=== PATIENT | female | born 2000 | race Caucasian/White ===

== ENCOUNTER 2023-09-27 13:47 | Emergency (ER) | payer OTHER, SELFPAY ==
[2023-09-27 13:51] VITALS: BP 122/76
--- NOTE | 2023-09-27 14:44 | ED.GENMED ---
History of Present Illness
General
Chief Complaint: Skin Problem
Time Seen by Provider: 09/27/23 14:27
History of Present Illness
History of Present Illness:
23-year-old female presents to the emergency department for evaluation of an actively draining abscess to the left inner breast. Father states she has had numerous issues with skin infections over the past several months. Has never had an abscess
drained in the past. No reported fevers or chills
Past History
Past History
ED Past Medical History: Other (hydradenitis suppurativa )
Review of Systems
Review of Systems
Allergies reviewed?: Yes
All Other Systems: ROS reviewed and negative except as documented in HPI and ROS
Phy Exam
Physical Exam
Physical Exam:
GEN: Well appearing, NAD, WDWN
HEENT: Oral mucosa moist, no scleral icterus
Cardiac: Regular rate
Lung: No respiratory distress, no tachypnea
MSK: No gross deformity or injuries
Skin: Good color, no pallor or jaundice, no rashes. 4 cm x 2 cm fluctuant abscess with active purulent discharge to the left inner breast tissue
Neuro: AO x3, moves all extremities freely
Psych: Calm, cooperative
Course
Vital Signs
Initial and Last Documented VS:
Initial Vital Signs
Temp Pulse Resp BP Pulse Ox
98.2 F 84 18 122/76 98
09/27/23 13:51 09/27/23 13:51 09/27/23 13:51 09/27/23 13:51 09/27/23 13:51
Last Documented Vital Signs
Temp Pulse Resp BP Pulse Ox
98.2 F 84 18 122/76 98
09/27/23 13:51 09/27/23 13:51 09/27/23 13:51 09/27/23 13:51 09/27/23 13:51
Procedures
Incision/Drainage/Joint Aspiration
Left Breast:
Anethesia: 1% Lidocaine with Epi
Preparation: cleaned with alcohol wipe
Type of procedure: incise and drain
Nature of site: abscess
Description of abscess: greater than 3cm
How much fluid was obtained?: large amount
Fluid description: purulent
Treatment: left open for drainage
*Critical Care Note
Total Time (30-74mins, 75-104mins- exclusive of procedures): Not Applicable
ED Attending Note
-
Portions of this chart may have been created with voice recognition software.� Occasional wrong word or��sound alike� substitutions may have occurred due to the inherent limitations of voice recognition software.
Discharge Plan
Departure
Patient Disposition: Home (Routine Discharge)
Date of Disposition: 09/27/23
Time of Disposition: 14:49
Patient with high blood pressure during this ER visit?: No
Discharge Problem:
Abscess of breast
Instructions: Skin Abscess
Prescriptions:
New
sulfamethoxazole-trimethoprim [Bactrim DS] 800-160 mg tablet
1 tab PO Q12H Qty: 20 0RF
No Action
clindamycin HCl 300 mg capsule
300 mg PO Q6H 10 Days Qty: 40 0RF
mupirocin 2 % ointment
1 applic topical DAILY 10 Days Qty: 22 0RF
Referrals:
UNKNOWN - PT DOES,NOT KNOW [Family Provider] -
Interventions
Interventions:
*Risk Screen - Suicide Last Done: 09/27/23 13:56
*General Assessment Last Done: 09/27/23 13:56
*Neglect/Abuse Screening Last Done: 09/27/23 13:56
ED- Fall Risk Assessment Last Done: 09/27/23 14:11
ED-Skin Assessment Last Done: 09/27/23 14:11
Discharge Date and Time
Print Language: AMHARIC
== END 2023-09-27 14:59 | disposition home or self-care (01) ==
LOC: EMR 13:47
PROVIDERS: EMERGENCY PHYSICIAN Emergency Medicine
DX: N61.1 Abscess of the breast and nipple (principal)
CPT/HCPCS: 99283; 10060